=== PATIENT | female | born 1990 | race Caucasian/White ===

== ENCOUNTER 2016-10-29 09:44 | Inpatient (IN) | payer MEDICAID, OTHER ==
[2016-10-29] MEDS ORDERED: Lidocaine 1% 50 ML MDV INJECT PRN (10:27)
[2016-10-29] MEDS ORDERED: Sodium Chloride 0.9% 2.5 ML Syringe FLUSH PRN (10:27)
[2016-10-29] MEDS ORDERED: Water For Irrigation,Sterile 1,000 ML Container IRR PRN (10:27)
[2016-10-29] MEDS ORDERED: Ampicillin 2 GM in Sodium Chloride 0.9% 100 ML IV ONE (10:27)
[2016-10-29] MEDS ORDERED: Sodium Chloride 0.9% 10 ML Syringe FLUSH PRN (10:27)
[2016-10-29] MEDS ORDERED: Methylergonovine 0.2 MG/1 ML Amp IM PRN (10:27)
[2016-10-29] MEDS ORDERED: Carboprost Tromethamine 250 MCG/1 ML Amp IM PRN (10:27)
[2016-10-29] MEDS ORDERED: Nalbuphine 10 MG/1 ML Vial IVPUSH PRN (10:27)
[2016-10-29] MEDS ORDERED: Butorphanol 1 MG/ML SDV IVPUSH PRN (10:27)
[2016-10-29] MEDS ORDERED: Misoprostol 200 MCG Tab PO PRN (10:27)
[2016-10-29] MEDS ORDERED: Lactated Ringers 1,000 ML IV SCH (10:30)
[2016-10-29] MEDS ORDERED: Oxytocin/Lactated Ringers 30 UNIT/500 ML BAG IV SCH (10:30)
[2016-10-29] MEDS ORDERED: Ampicillin 1 GM in Sodium Chloride 0.9% 50 ML IV SCH (10:30)
[2016-10-29] MEDS ORDERED: Oxytocin/Lactated Ringers 30 UNIT/500 ML BAG ONE ×2 (10:37→11:08)
[2016-10-29] MEDS ORDERED: Lidocaine 1% 50 ML MDV ONE (10:38)
[2016-10-29] MEDS ORDERED: fentaNYL 100 MCG/2 ML SDV ONE (11:07)
[2016-10-29] MEDS ORDERED: Bisacodyl 10 MG Supp RECTAL PRN (11:21)
[2016-10-29] MEDS ORDERED: Benzocaine/Menthol 20%-0.5% Spray 78 GM Cannister TOP PRN (11:21)
[2016-10-29] MEDS ORDERED: Ibuprofen 400 MG Tab PO PRN (11:21)
[2016-10-29] MEDS ORDERED: Witch Hazel Medicated Pads 40/Jar TOP PRN (11:21)
[2016-10-29] MEDS ORDERED: Lanolin 100% Cream 7 GM Tube TOP PRN (11:21)
[2016-10-29] MEDS ORDERED: Docusate Sodium 100 MG Cap PO PRN (11:21)
[2016-10-29] MEDS ORDERED: Acetaminophen 500 MG Tab PO PRN ×2 (11:21)
--- NOTE | 2016-10-29 11:25 | PCM.LDHP ---
L&D History of Present Illness - General Date of Service: 10/29/16 Admit Problem/Dx: Patient Status Order with Admit Dx/Problem 10/29/16 10:27 Patient Status [ADT] Routine 10/29/16 11:21 Patient Status [ADT] Routine Admission Diagnosis/Problem Admission Diagnosis/Problem Source of Information: Patient History Limitations: Reports: No Limitations - History of Present Illness Improves with: Reports: None Worsens with: Reports: None Associated Symptoms: Reports: N H&P Review of Systems - Review of Systems: Review Of Systems: See Below General: Reports: No Symptoms HEENT: Reports: No Symptoms Pulmonary: Reports: No Symptoms Cardiovascular: Reports: No Symptoms Gastrointestinal: Reports: No Symptoms Genitourinary: Reports: No Symptoms Musculoskeletal: Reports: No Symptoms Skin: Reports: No Symptoms Psychiatric: Reports: No Symptoms Neurological: Reports: No Symptoms Hematologic/Lymphatic: Reports: No Symptoms Immunologic: Reports: No Symptoms L&D Exam - Exam Exam: See Below - OB Specific Contraction Intensity: Moderate to Strong Movement: Active Heart Tones: Present Presentation: Vertex - Carrasco Score Carrasco Score Cervix Position: Anterior Carrasco Score Consistency: Soft Carrasco Score Effacement: >80% Carrasco Score Dilation: > 5 cm Carrasco Score 's Station: -1 ,0 Carrasco Score Total: 12 - Exam General: Alert, Oriented HEENT: PERRLA, Conjunctiva Clear, EACs Clear, EOMI, Hearing Intact, Mucosa Moist & [place], Nares Patent, Normal Nasal Septum, Posterior Pharynx Clear, TMs Clear Neck: Supple, Trachea Midline Lungs: Clear to Auscultation, Normal Respiratory Effort Cardiovascular: Regular Rate, Regular Rhythm GI/Abdominal Exam: Normal Bowel Sounds, Soft, Non-Tender, No Organomegaly, No Distention, No Abnormal Bruit, No Mass, Pelvis Stable Rectal Exam: Normal Exam, Normal Rectal Tone Genitourinary: Normal external exam, Normal bimanual exam, Normal speculum exam Back Exam: Normal Inspection, Full Range of Motion Extremities: Normal Inspection, Normal Range of Motion, Non-Tender, No Pedal Edema, Normal Capillary Refill Skin: Warm, Dry, Intact Neurological: Cranial Nerves Intact, Reflexes Equal Bilateral Psychiatric: Alert, Normal Affect, Normal Mood - Patient Data Lab Results Last 24 hrs: Laboratory Results - last 24 hr 10/29/16 Range/Units 10:08 WBC 11.83 H (4.0-11.0) K/uL RBC 3.82 L (4.30-5.90) M/uL Hgb 11.6 L (12.0-16.0) g/dL Hct 34.3 L (36.0-46.0) % MCV 89.8 (80.0-98.0) fL MCH 30.4 (27.0-32.0) pg MCHC 33.8 (31.0-37.0) g/dL RDW Std Deviation 46.4 (28.0-62.0) fl RDW Coeff of [place] 14 (11.0-15.0) % Plt Count 278 (150-400) K/uL MPV 10.10 (7.40-12.00) fL Nucleated RBC % 0.0 /100WBC Nucleated RBCs # 0 K/uL Result Diagrams: 10/29/16 10:08 Problem List Initiated/Reviewed/Updated: Yes Orders Last 24hrs: Active Orders 24 hr Category Date Time Status Patient Status [ADT] Routine ADT 10/29/16 11:21 Ordered Heart Tones [RC] CONTINUOUS Care 10/29/16 10:27 Active Non Stress Test [RC] PER UNIT ROUTINE Care 10/29/16 10:27 Active May Shower [RC] ASDIRECTED Care 10/29/16 10:27 Active May Shower [RC] ASDIRECTED Care 10/29/16 11:21 Ordered Notify Provider [RC] PRN Care 10/29/16 10:27 Active Up ad Rosenda [RC] ASDIRECTED Care 10/29/16 10:27 Active Up ad Rosenda [RC] ASDIRECTED Care 10/29/16 11:21 Ordered Vaginal Exam [RC] PRN Care 10/29/16 10:27 Active Vital Signs [RC] PER UNIT ROUTINE Care 10/29/16 10:27 Active Vital Signs [RC] PER UNIT ROUTINE Care 10/29/16 11:21 Ordered HEMOGLOBIN/HEMATOCRIT,HH [HEME] Timed Lab 10/30/16 05:11 Ordered TYPE AND SCREEN [BBK] Routine Lab 10/29/16 10:08 Received Acetaminophen [Tylenol Extra Strength] Med 10/29/16 11:21 Ordered 1,000 mg PO Q4H PRN Acetaminophen [Tylenol Extra Strength] Med 10/29/16 11:21 Ordered 500 mg PO Q4H PRN Ampicillin 1 gm Med 10/29/16 10:30 Active Sodium Chloride 0.9% [Normal Saline] 50 ml IV Q4H Benzocaine/Menthol [Dermoplast Pain Relief 20%-0.5% Med 10/29/16 11:21 Ordered [place]] 78 gm TOP ASDIRECTED PRN Bisacodyl [Dulcolax] Med 10/29/16 11:21 Ordered 10 mg RECTAL .ONCE PRN Butorphanol [Stadol] Med 10/29/16 10:27 Active 1 mg IVPUSH Q1H PRN Carboprost Tromethamine [Hemabate DS] Med 10/29/16 10:27 Active 250 mcg IM ASDIRECTED PRN Docusate Sodium [Colace] Med 10/29/16 11:21 Ordered 100 mg PO BID PRN Ibuprofen [Motrin] Med 10/29/16 11:21 Ordered 400 mg PO Q4H PRN Ibuprofen [Motrin] Med 10/29/16 11:21 Ordered 800 mg PO Q6H PRN Lactated Ringers [Ringers, Lactated] 1,000 ml Med 10/29/16 10:30 Active IV ASDIRECTED Lanolin [Lansinoh HPA] Med 10/29/16 11:21 Ordered See Dose Instructions TOP ASDIRECTED PRN Lidocaine 1% [Xylocaine 1%] Med 10/29/16 10:27 Active 50 ml INJECT .ONCE PRN Methylergonovine [Methergine] Med 10/29/16 10:27 Active 0.2 mg IM ASDIRECTED PRN Misoprostol [Cytotec] Med 10/29/16 10:27 Active 200 mcg PO .ONCE PRN Nalbuphine [Nubain] Med 10/29/16 10:27 Active 10 mg IVPUSH Q1H PRN Sodium Chloride 0.9% [Saline Flush] Med 10/29/16 10:27 Active 10 ml FLUSH ASDIRECTED PRN Sodium Chloride 0.9% [Saline Flush] Med 10/29/16 10:27 Active 2.5 ml FLUSH ASDIRECTED PRN Water For Irrigation,Sterile [Sterile Water for Med 10/29/16 10:27 Active Irrigation] 1,000 ml IRR ASDIRECTED PRN Witch Valarie [Tucks] Med 10/29/16 11:21 Ordered 1 pad TOP ASDIRECTED PRN oxyCODONE Med 10/29/16 11:21 Ordered 5 mg PO Q2H PRN Assess Lochia [WOMSER] Per Unit Routine Oth 10/29/16 11:21 Ordered Assess Uterine Involution [WOMSER] Per Unit Routine Oth 10/29/16 11:21 Ordered Scalp Electrode [WOMSER] Per Unit Routine Ot 10/29/16 10:27 Ordered Peripheral IV Discontinue [OM.PC] Routine Ot 10/29/16 11:21 Ordered Peripheral IV Insertion Adult [OM.PC] Routine Ot 10/29/16 10:27 Ordered Resuscitation Status Routine Resus Stat 10/29/16 10:27 Ordered Medication Orders Butorphanol Tartrate (Stadol) 1 mg IVPUSH Q1H PRN PRN Reason: Pain Carboprost Tromethamine (Hemabate Ds) 250 mcg IM ASDIRECTED PRN PRN Reason: Post Hemorrhage Ampicillin Sodium 1 gm/ Sodium (Chloride) 50 mls @ 100 mls/hr IV Q4H SONNY Lactated Ringer's (Ringers, Lactated) 1,000 mls @ 150 mls/hr IV ASDIRECTED SONNY Lidocaine HCl (Xylocaine 1%) 50 ml INJECT .ONCE PRN PRN Reason: Laceration repair Methylergonovine Maleate (Methergine) 0.2 mg IM ASDIRECTED PRN PRN Reason: Post Hemorrhage Misoprostol (Cytotec) 200 mcg PO .ONCE PRN PRN Reason: Post Hemorrhage Nalbuphine HCl (Nubain) 10 mg IVPUSH Q1H PRN PRN Reason: Pain (severe 7-10) Stop: 10/29/16 12:28 Sodium Chloride (Saline Flush) 10 ml FLUSH ASDIRECTED PRN PRN Reason: Keep Vein Open Sodium Chloride (Saline Flush) 2.5 ml FLUSH ASDIRECTED PRN PRN Reason: Keep Vein Open Sterile Water (Sterile Water For Irrigation) 1,000 ml IRR ASDIRECTED PRN PRN Reason: delivery Assessment/Plan Comment:: according to the patient she is para 1001 she had no care in this area she claims she was seen in [place] in this and had lost visit to have 6 weeks ago. At the time of admission the patient 5-6 cm Protonix with bulging bag and GBS status is unknown and we do not have any record on the present time Plan is to admit the patient start her on antibiotics as per protocol and try to obtain her record as soon as possible anticipating normal spontaneous vaginal delivery
[2016-10-29] MEDS: Ibuprofen 800 MG Tab PO PRN ×2 (12:49→20:10)
[2016-10-29] MEDS: oxyCODONE 5 MG Tab PO PRN (12:49)
--- NOTE | 2016-10-29 15:18 | OR ---
SURGEON: Carter Gomes MD DATE OF PROCEDURE: DELIVERY NOTE: Ms. Starr is a 26-year-old patient. She is para 1-0-0-1. Her first is 9 pounds plus. She had no care in this area. She presented to Labor and Delivery in active labor. According to her, EDC is on November 03, 2016 and at the time of admission to Labor and Delivery, she had an active fetus with a strong contraction every 2 to 3 minutes, and on examination that she is 5 to 6 cm complete vertex with 0 to -1 station. heart rate was category 1. Her GBS status is unknown and her record is not available at this time, so we started her on IV antibiotic as per protocol. However, the patient progressed rather rapidly. She went to 8 to 9, and with an artificial rupture of membranes at that time, the patient was complete and commenced pushing, and she was able to accomplish normal spontaneous vaginal delivery of male fetus. score reported to be 8 and 9. The weight is not available. The placenta had to be extracted manually without any problem and there was a first-degree perineal lacerations and repaired with 3-0 Vicryl after infiltrating the area with 1% Xylocaine. Estimated blood loss in this delivery is 250 to 300 mL. heart rate was category 1 through the entire process of labor. There was no complication in this Labor and Delivery. CRISTINA / DANIAL /[id number]
[2016-10-30 08:09] VITALS: BP 128/74
--- NOTE | 2016-10-30 10:52 | PCM.PNPP ---
- General Info Date of Service: 10/30/16 Functional Status: Reports: Pain Controlled - Review of Systems General: Reports: No Symptoms HEENT: Reports: No Symptoms Pulmonary: Reports: No Symptoms Cardiovascular: Reports: No Symptoms Gastrointestinal: Reports: No Symptoms Genitourinary: Reports: No Symptoms Musculoskeletal: Reports: No Symptoms Skin: Reports: No Symptoms Neurological: Reports: No Symptoms Psychiatric: Reports: No Symptoms - General Info Date of Service: 10/30/16 - Patient Data Vital Signs - Most Recent: Last Vital Signs Temp 36.6 C 10/30/16 08:00 Pulse 65 10/30/16 08:00 Resp 16 10/30/16 08:00 BP 128/74 10/30/16 08:00 Pulse Ox 98 10/30/16 08:00 Weight - Most Recent: 96.162 kg Lab Results - Last 24 Hours: Laboratory Results - last 24 hr 10/29/16 10/30/16 Range/Units 10:08 05:16 Hgb 9.0 L (12.0-16.0) g/dL Hct 28.1 L (36.0-46.0) % Blood Type A POSITIVE Antibody Screen NEGATIVE Med Orders - Current: Current Medications Acetaminophen (Tylenol Extra Strength) 500 mg PO Q4H PRN PRN Reason: Pain Acetaminophen (Tylenol Extra Strength) 1,000 mg PO Q4H PRN PRN Reason: Pain Benzocaine/Menthol (Dermoplast Pain Relief 20%-0.5% [place]) 78 gm TOP ASDIRECTED PRN PRN Reason: Perineal Comfort Measure Last Admin: 10/29/16 12:48 Dose: 1 applic Bisacodyl (Dulcolax) 10 mg RECTAL .ONCE PRN PRN Reason: Constipation Butorphanol Tartrate (Stadol) 1 mg IVPUSH Q1H PRN PRN Reason: Pain Carboprost Tromethamine (Hemabate Ds) 250 mcg IM ASDIRECTED PRN PRN Reason: Post Hemorrhage Docusate Sodium (Colace) 100 mg PO BID PRN PRN Reason: Constipation Emollient Ointment (Lansinoh Hpa) 0 gm TOP ASDIRECTED PRN PRN Reason: Sore Nipples Last Admin: 10/29/16 12:49 Dose: 1 applicful Ampicillin Sodium 1 gm/ Sodium (Chloride) 50 mls @ 100 mls/hr IV Q4H SONNY Lactated Ringer's (Ringers, Lactated) 1,000 mls @ 150 mls/hr IV ASDIRECTED SONNY Ibuprofen (Motrin) 400 mg PO Q4H PRN PRN Reason: Pain Ibuprofen (Motrin) 800 mg PO Q6H PRN PRN Reason: Pain Last Admin: 10/29/16 20:10 Dose: 800 mg Lidocaine HCl (Xylocaine 1%) 50 ml INJECT .ONCE PRN PRN Reason: Laceration repair Last Admin: 10/29/16 12:50 Dose: 50 ml Methylergonovine Maleate (Methergine) 0.2 mg IM ASDIRECTED PRN PRN Reason: Post Hemorrhage Misoprostol (Cytotec) 200 mcg PO .ONCE PRN PRN Reason: Post Hemorrhage Oxycodone HCl (Oxycodone) 5 mg PO Q2H PRN PRN Reason: Pain Last Admin: 10/29/16 12:49 Dose: 5 mg Sodium Chloride (Saline Flush) 10 ml FLUSH ASDIRECTED PRN PRN Reason: Keep Vein Open Sodium Chloride (Saline Flush) 2.5 ml FLUSH ASDIRECTED PRN PRN Reason: Keep Vein Open Sterile Water (Sterile Water For Irrigation) 1,000 ml IRR ASDIRECTED PRN PRN Reason: delivery Witch Valarie (Tucks) 1 pad TOP ASDIRECTED PRN PRN Reason: comfort care Last Admin: 10/29/16 12:48 Dose: 1 applic Discontinued Medications Fentanyl (Sublimaze) Confirm Administered Dose 100 mcg .ROUTE .STK-MED ONE Stop: 10/29/16 11:08 Last Admin: 10/29/16 11:07 Dose: 100 mcg Ampicillin Sodium 2 gm/ Sodium (Chloride) 100 mls @ 200 mls/hr IV ONETIME ONE Stop: 10/29/16 10:56 Last Admin: 10/29/16 12:52 Dose: 200 mls/hr Oxytocin/Lactated Ringer's (Pitocin In Lr 30 Units/500 Ml) 30 unit in 500 mls @ 999 mls/hr IV TITRATE SONNY PRN Reason: 999 MUNITS/MIN Stop: 10/29/16 11:01 Last Admin: 10/29/16 10:57 Dose: 999 munits/min, 999 mls/hr Oxytocin/Lactated Ringer's (Pitocin In Lr 30 Units/500 Ml) Confirm Administered Dose 30 unit in 500 mls @ as directed .ROUTE .STK-MED ONE Stop: 10/29/16 10:38 Last Admin: 10/29/16 11:20 Dose: 999 unit Oxytocin/Lactated Ringer's (Pitocin In Lr 30 Units/500 Ml) Confirm Administered Dose 30 unit in 500 mls @ as directed .ROUTE .STK-MED ONE Stop: 10/29/16 11:09 Lidocaine HCl (Xylocaine 1%) Confirm Administered Dose 50 ml .ROUTE .STK-MED ONE Stop: 10/29/16 10:39 Nalbuphine HCl (Nubain) 10 mg IVPUSH Q1H PRN PRN Reason: Pain (severe 7-10) Stop: 10/29/16 12:28 - Infant Interaction Disposition, : [place] in Room with Family Interaction: Holding Infant Infant Feeding: Attempted ; Nursed Fair/Poor Support Person: Significant Other - Recovery Exam Fundal Tone: Firm Fundal Level: 1 Fingerbreadths Below Umbilicus Fundal Placement: Midline Lochia Amount: Scant Lochia Color: Rubra/Red Perineum Description: Intact, Minimal Bruising/Swelling Episiotomy/Laceration: Approximated Bladder Status: Voiding Urinary Elimination: Voided - Exam General: Alert, Oriented HEENT: Pupils Equal Neck: Supple Lungs: Clear to Auscultation, Normal Respiratory Effort Cardiovascular: Regular Rate, Regular Rhythm GI/Abdominal Exam: Normal Bowel Sounds, Soft, Non-Tender, No Organomegaly, No Distention, No Abnormal Bruit, No Mass, Pelvis Stable Extremities: Normal Inspection, Normal Range of Motion, Non-Tender, No Pedal Edema, Normal Capillary Refill Skin: Warm, Dry, Intact Wound/Incisions: Healing Well Neurological: No New Focal Deficit Psy/Mental Status: Alert, Normal Affect, Normal Mood - Problem List Review Problem List Initiated/Reviewed/Updated: Yes - My Orders Last 24 Hours: My Active Orders 10/29/16 10:27 Up ad Rosenda [RC] ASDIRECTED Vital Signs [RC] PER UNIT ROUTINE Butorphanol [Stadol] 1 mg IVPUSH Q1H PRN Carboprost Tromethamine [Hemabate DS] 250 mcg IM ASDIRECTED PRN Lidocaine 1% [Xylocaine 1%] 50 ml INJECT .ONCE PRN Methylergonovine [Methergine] 0.2 mg IM ASDIRECTED PRN Misoprostol [Cytotec] 200 mcg PO .ONCE PRN Sodium Chloride 0.9% [Saline Flush] 10 ml FLUSH ASDIRECTED PRN Sodium Chloride 0.9% [Saline Flush] 2.5 ml FLUSH ASDIRECTED PRN Water For Irrigation,Sterile [Sterile Water for Irrigation] 1,000 ml IRR ASDIRECTED PRN Scalp Electrode [WOMSER] Per Unit Routine Peripheral IV Insertion Adult [OM.PC] Routine Resuscitation Status Routine 10/29/16 10:30 Ampicillin 1 gm Sodium Chloride 0.9% [Normal Saline] 50 ml IV Q4H Lactated Ringers [Ringers, Lactated] 1,000 ml IV ASDIRECTED 10/29/16 11:21 Patient Status [ADT] Routine May Shower [RC] ASDIRECTED Acetaminophen [Tylenol Extra Strength] 1,000 mg PO Q4H PRN Acetaminophen [Tylenol Extra Strength] 500 mg PO Q4H PRN Benzocaine/Menthol [Dermoplast Pain Relief 20%-0.5% [place]] 78 gm TOP ASDIRECTED PRN Bisacodyl [Dulcolax] 10 mg RECTAL .ONCE PRN Docusate Sodium [Colace] 100 mg PO BID PRN Ibuprofen [Motrin] 400 mg PO Q4H PRN Ibuprofen [Motrin] 800 mg PO Q6H PRN Lanolin [Lansinoh HPA] See Dose Instructions TOP ASDIRECTED PRN Witch Valarie [Tucks] 1 pad TOP ASDIRECTED PRN oxyCODONE 5 mg PO Q2H PRN Assess Lochia [WOMSER] Per Unit Routine Assess Uterine Involution [WOMSER] Per Unit Routine Peripheral IV Discontinue [OM.PC] Routine 10/30/16 Breakfast Regular Diet [DIET] - Plan Plan:: according to the patient she is para 1001 she had no care in this area she claims she was seen in [place] in this and had lost visit to have 6 weeks ago. At the time of admission the patient 5-6 cm Protonix with bulging bag and GBS status is unknown and we do not have any record on the present time Plan is to admit the patient start her on antibiotics as per protocol and try to obtain her record as soon as possible anticipating normal spontaneous vaginal delivery
[2016-10-30] MEDS: Ibuprofen 800 MG Tab PO PRN (11:56)
[2016-10-30] MEDS: oxyCODONE 5 MG Tab PO PRN (13:40)
== END 2016-10-30 14:00 | disposition home or self-care (01) | DRG 775 ==
LOC: MW.OBCHECK 09:44 → MW.OB 09:55 → OBSVTOIN 10:55 → MW.OB 10:55
PROVIDERS: ADMIT Obstetrics & Gynecology; ATTEND Obstetrics & Gynecology
PROC: 10E0XZZ Delivery of Products of Conception, External Approach (ICD-10-PCS; principal; 2016-10-29)
PROC: 0HQ9XZZ Repair Perineum Skin, External Approach (ICD-10-PCS; 2016-10-29)
PROC: 10907ZC Drainage of Amniotic Fluid, Therapeutic from Products of Conception, Via Natural or Artificial Opening (ICD-10-PCS; 2016-10-29)
DX: O70.0 First degree perineal laceration during delivery (principal); Z3A.38 38 weeks gestation of pregnancy; Z37.0 Single live birth
CPT/HCPCS: 36415; 59025; 85014; 85018; 85027; 86850; 86900; 86901; A9270-GY; J0290; J3010; J7030